=== PATIENT | female | born 1945 | race Caucasian/White ===

== ENCOUNTER → 2023-04-25 | Day surgery (SDC) | payer MEDICARE, MEDICAID ==
[~2023-04-25] VITALS: Ht 157.5 cm; Wt 72.6 kg
[~2023-04-25] MED LIST: ACETAMINOPHEN 325MG TABLET PO PRN; AMIT75TA2 PO; ASPI-1406 PO; ATOR40TA70 PO; ATROPINE SULFATE 1MG/10ML SYR IV PRN; BACITRACIN 14GM TUBE TOP ONE; BUPIVACAINE HCL/PF 0.5% (5MG/ML) 10ML ONE; CHOL-36 PO; CLOP-31 PO; CYCL30DR EACHEYE; DAPA10TA PO; FENTANYL CITRATE/PF 50MCG/ML 2ML VIAL ONE; FINE10TA PO; GABA-529 PO; HEPARIN 1000 UNITS/ML 10ML ONE; ICOS1CAP PO; INSU100I28 SQ; IODIXANOL 320MG/ML 100 ML BOTTLE IV ONE; ISOS30TA12 PO; LEVO125T8 PO; LIDOCAINE HCL 1% 10 MG/ML 10ML VIAL ONE; LORA10TA7 PO; METO-539 PO; MIDAZOLAM HCL 2 MG/2 ML VIAL ONE; ONDANSETRON HCL 4MG/2ML INJ IV PRN; POLYMYXIN B SULFATE 500000 UNITS/VIAL ONE; SENN-312 PO; THROMBIN (BOVINE) 5000 UNITS/VIAL TOP ONE; VENL-179 PO
== END | disposition home or self-care (01) ==
LOC: CCL 06:19
PROVIDERS: ATTEND Specialist
DX: R07.9 Chest pain, unspecified (principal); I25.2 Old myocardial infarction; I25.10 Atherosclerotic heart disease of native coronary artery without angina pectoris; I10 Essential (primary) hypertension; E11.9 Type 2 diabetes mellitus without complications; E78.5 Hyperlipidemia, unspecified; I48.91 Unspecified atrial fibrillation; Z79.899 Other long term (current) drug therapy; Z98.890 Other specified postprocedural states; Z79.82 Long term (current) use of aspirin; Z79.4 Long term (current) use of insulin; Z88.2 Allergy status to sulfonamides; Z88.8 Allergy status to other drugs, medicaments and biological substances
CPT/HCPCS: 82962; 93458; C1893; C1725; C1769 ×2; J3010; Q9967; J3490 ×4; J1644 ×2; J2250; Z7610 ×9; C1887; 99152; 99153; G0500

== ENCOUNTER → 2024-02-13 | Day surgery (SDC) | payer MEDICARE, MEDICAID ==
[~2024-02-13] VITALS: Ht 182.9 cm; Wt 72.6 kg
[~2024-02-13] MED LIST changes: -ACETAMINOPHEN 325MG TABLET PO PRN; +APIX2.5T PO; -ASPI-1406 PO; -ATOR40TA70 PO; -ATROPINE SULFATE 1MG/10ML SYR IV PRN; +ATROPINE SULFATE 1MG/10ML SYR ONE; -BACITRACIN 14GM TUBE TOP ONE; -BUPIVACAINE HCL/PF 0.5% (5MG/ML) 10ML ONE; +DICL100T83 PO; +DILT180C66 PO; +DOXE3TAB3 PO; +EZET10TA81 PO; -FENTANYL CITRATE/PF 50MCG/ML 2ML VIAL ONE; -FINE10TA PO; +FINE20TA PO; -ISOS30TA12 PO; -LEVO125T8 PO; +LEVO137T2 PO; -LIDOCAINE HCL 1% 10 MG/ML 10ML VIAL ONE; +LIDOCAINE HCL 1% 20ML VIAL ONE; -MIDAZOLAM HCL 2 MG/2 ML VIAL ONE; -ONDANSETRON HCL 4MG/2ML INJ IV PRN; -POLYMYXIN B SULFATE 500000 UNITS/VIAL ONE; -SENN-312 PO; +SITA100T11 PO; -THROMBIN (BOVINE) 5000 UNITS/VIAL TOP ONE; +VOLTAREN 1% GEL TOP
[2024-02-13] MEDS: SODIUM CHLORIDE 0.45% 500 ML IV ONE (07:12)
== END | disposition home or self-care (01) ==
LOC: OR 06:01
PROVIDERS: ATTEND Specialist
DX: I77.89 Other specified disorders of arteries and arterioles (principal); Z53.8 Procedure and treatment not carried out for other reasons; Z79.4 Long term (current) use of insulin; Z79.899 Other long term (current) drug therapy; Z88.2 Allergy status to sulfonamides; Z88.8 Allergy status to other drugs, medicaments and biological substances; Z98.890 Other specified postprocedural states; Z83.3 Family history of diabetes mellitus; Z82.49 Family history of ischemic heart disease and other diseases of the circulatory system
CPT/HCPCS: 82962; Q9967; J0461; J1644 ×2; J3490; A4606

== ENCOUNTER → 2024-02-20 | Day surgery (SDC) | payer MEDICARE, MEDICAID ==
[~2024-02-20] VITALS: Ht 157.5 cm; Wt 72.6 kg
[~2024-02-20] MED LIST changes: +ACETAMINOPHEN 325MG TABLET PO PRN; +ATROPINE SULFATE 1MG/10ML SYR IV PRN; +FENTANYL CITRATE/PF 50MCG/ML 2ML VIAL ONE; +MIDAZOLAM HCL 2 MG/2 ML VIAL ONE; +ONDANSETRON HCL 4MG/2ML INJ IV PRN; +SODIUM CHLORIDE 0.45% 500 ML IV ONE
== END | disposition home or self-care (01) ==
LOC: CCL 06:13
PROVIDERS: ATTEND Specialist
DX: I65.22 Occlusion and stenosis of left carotid artery (principal); I25.10 Atherosclerotic heart disease of native coronary artery without angina pectoris; I10 Essential (primary) hypertension; I25.2 Old myocardial infarction; I48.0 Paroxysmal atrial fibrillation; E78.5 Hyperlipidemia, unspecified; E11.9 Type 2 diabetes mellitus without complications; E03.9 Hypothyroidism, unspecified; J44.9 Chronic obstructive pulmonary disease, unspecified; F17.210 Nicotine dependence, cigarettes, uncomplicated; Z86.73 Personal history of transient ischemic attack (TIA), and cerebral infarction without residual deficits; Z79.01 Long term (current) use of anticoagulants; Z79.02 Long term (current) use of antithrombotics/antiplatelets; Z79.82 Long term (current) use of aspirin; Z79.84 Long term (current) use of oral hypoglycemic drugs; Z79.890 Hormone replacement therapy; Z79.899 Other long term (current) drug therapy; Z88.1 Allergy status to other antibiotic agents; Z88.2 Allergy status to sulfonamides; Z95.5 Presence of coronary angioplasty implant and graft; Z98.890 Other specified postprocedural states
CPT/HCPCS: 82962; 36222; C1893; C1769 ×2; J3010; Q9967; J0461; J1644 ×2; J3490; J2250; 99152; A4606; G0500